=== PATIENT | female | born 1980 | race Two or more races ===

== ENCOUNTER 2023-04-22 12:13 | Inpatient (IN) | payer OTHER ==
[2023-04-22 12:41] VITALS: BMI 21.9
[2023-04-22] MEDS ORDERED: NALOXONE HCL 0.4 MG/ML VIAL IM PRN (14:15)
[2023-04-22] MEDS ORDERED: POLYETHYLENE GLYCOL (HEALTHYLAX) 3350 17 GM PACKET PO PRN (14:15)
[2023-04-22] MEDS ORDERED: METHOCARBAMOL 500 MG TABLET PO PRN (14:15)
[2023-04-22] MEDS ORDERED: NALOXONE HCL (KLOXXADO) 8 MG SPRAY NS PRN (14:15)
[2023-04-22] MEDS ORDERED: IBUPROFEN 400 MG TABLET (FP) PO PRN (14:15)
[2023-04-22] MEDS ORDERED: ACETAMINOPHEN 325 MG TABLET (FP) PO PRN (14:15)
[2023-04-22] MEDS ORDERED: IBUPROFEN 600 MG TABLET (FP) PO PRN (14:15)
[2023-04-22] MEDS ORDERED: DICYCLOMINE HCL 10 MG CAPSULE PO PRN (14:15)
[2023-04-22] MEDS ORDERED: MAGNESIUM HYDROX 2400MG/30ML ORAL SUSPENSION 30 ML CUP PO PRN (14:15)
[2023-04-22] MEDS ORDERED: LORazepam 1 MG TABLET PO PRN (14:15)
[2023-04-22] MEDS ORDERED: BISMUTH SUBSALICYLATE 262 MG/15 ML BTL PO PRN (14:15)
[2023-04-22] MEDS ORDERED: MAG HYDROX/AL HYDROX/SIMETH 30 ML UNIT-DOSE CUP PO PRN (14:15)
[2023-04-22] MEDS ORDERED: LOPERAMIDE HCL 2 MG CAPSULE PO PRN (14:15)
[2023-04-22] MEDS ORDERED: guaiFENesin 600 MG TABLET.ER (FP) PO PRN (14:15)
[2023-04-22] MEDS ORDERED: BENZONATATE 200 MG CAPSULE PO PRN (14:15)
[2023-04-22] MEDS ORDERED: BENZOCAINE/MENTHOL (CHLORASEPTIC ) LOZENGE MM PRN (14:15)
[2023-04-22] MEDS ORDERED: ONDANSETRON *ODT* 4 MG TABLET SL PRN (14:15)
[2023-04-22] MEDS ORDERED: NICOTINE 14 MG/24 HOURS TOPICAL PATCH TD ONE (14:42)
[2023-04-22] MEDS: NICOTINE 14 MG/24 HOURS TOPICAL PATCH TD SCH (14:44)
[2023-04-22] MEDS: LORazepam 2 MG TABLET PO SCH ×2 (17:25→22:27)
[2023-04-22] MEDS ORDERED: HYDROCORTISONE 2.5% TOPICAL CREAM 30 GM TUBE RC PRN (18:39)
[2023-04-22] MEDS: hydrOXYzine PAMOATE 25 MG CAPSULE (FP) PO PRN (20:49)
[2023-04-22] MEDS: MELATONIN 5 MG TABLETS PO SCH (22:27)
[2023-04-22] MEDS: THIAMINE HCL 100 MG TABLET (FP) PO SCH (22:27)
[2023-04-23] MEDS: LORazepam 2 MG TABLET PO SCH ×4 (05:34→22:27)
[2023-04-23] MEDS ORDERED: PRENATAL VITAMINS W/ FOLIC ACID TABLET (FP) PO SCH (10:00)
[2023-04-23] MEDS: NICOTINE 14 MG/24 HOURS TOPICAL PATCH TD SCH (10:24)
[2023-04-23] MEDS: hydrOXYzine PAMOATE 25 MG CAPSULE (FP) PO PRN (10:26)
[2023-04-23 11:27] LABS: HEMATOCRIT 20.8 % (32.4-45.2); HEMOGLOBIN 7.2 GM/dL (10.7-15.3); MCH 34.7 pg (25.7-33.7); MCHC 34.7 g/dl (32.0-36.0); MEAN CELL VOLUME 99.9 fl (80-96); MEAN PLT VOLUME 9.2 fl (7.5-11.1); PLATELET COUNT 247 10^3/uL (134-434); RBC 2.08 M/mm3 (3.60-5.2); RDW 14.7 % (11.6-15.6); WHITE BLOOD COUNT 8.6 K/mm3 (4.0-10.0)
[2023-04-23 11:28] LABS: CHLORIDE 96 mmol/L (98-107); SODIUM 132 mmol/L (136-145)
[2023-04-23 11:31] LABS: ALBUMIN 1.8 g/dl (3.4-5.0); GLUCOSE,RANDOM 110 mg/dL (74-106)
[2023-04-23 11:32] LABS: ANION GAP 11 mmol/L (4-13); BLOOD UREA NITROGEN 4.3 mg/dL (7-18); CO2 25 mmol/L (21-32)
[2023-04-23 11:34] LABS: CALCIUM 8.1 mg/dL (8.5-10.1)
[2023-04-23 11:35] LABS: CREATININE 0.5 mg/dL (0.55-1.3); SGOT/AST 184 U/L (15-37); SGPT/ALT 41 U/L (13-61)
[2023-04-23 11:36] LABS: TOT PROT 6.7 g/dl (6.4-8.2)
[2023-04-23 11:37] LABS: ALK PHOS 338 U/L (45-117)
[2023-04-23 11:38] LABS: BILIRUBIN,TOTAL 19.5 mg/dL (0.2-1)
[2023-04-23] MEDS ORDERED: POTASSIUM CHLORIDE ORAL LIQUID 20 MEQ/15 ML PO ONE ×2 (15:30→21:00)
[2023-04-23] MEDS ORDERED: LIDOCAINE 5% TOPICAL PATCH TP ONE (15:38)
[2023-04-23 16:42] VITALS: BP 102/61; PULSE 123; RESP 16; TEMP 98.9
[2023-04-23] MEDS ORDERED: LIDOCAINE PATCH REMOVAL MC SCH (22:00)
[2023-04-23] MEDS: MELATONIN 5 MG TABLETS PO SCH (22:26)
[2023-04-23] MEDS: THIAMINE HCL 100 MG TABLET (FP) PO SCH (22:27)
[2023-04-24] MEDS ORDERED: LORazepam 1 MG TABLET PO SCH (05:00)
[2023-04-25] MEDS ORDERED: LORazepam 0.5 MG TABLET PO PRN
[2023-04-25] MEDS ORDERED: LORazepam 0.5 MG TABLET PO SCH (05:00)
[2023-04-26] MEDS ORDERED: LORazepam 0.5 MG TABLET PO ONE (05:00)
== END 2023-04-24 02:03 | disposition short-term general hospital (02) | DRG 775 ==
LOC: YASAS 12:13 → Y6N 14:47
PROVIDERS: ADMIT Allergy & Immunology; ATTEND Surgery
PROC: HZ2ZZZZ Detoxification Services for Substance Abuse Treatment (ICD-10-PCS; principal; 2023-04-22)
DX: F10.230 Alcohol dependence with withdrawal, uncomplicated (principal); F17.210 Nicotine dependence, cigarettes, uncomplicated; D50.9 Iron deficiency anemia, unspecified; E72.20 Disorder of urea cycle metabolism, unspecified; E87.1 Hypo-osmolality and hyponatremia; E87.6 Hypokalemia; R17 Unspecified jaundice; R74.8 Abnormal levels of other serum enzymes; K64.9 Unspecified hemorrhoids; Z87.09 Personal history of other diseases of the respiratory system
CPT/HCPCS: 36415; 80053; 80307; 81025; 82140; 85027; 86780; 87635; 87811; 93005; 93010

== ENCOUNTER 2023-04-23 17:30 | Emergency (ER) | payer OTHER ==
[2023-04-23 18:55] VITALS: BMI 27.3
[2023-04-23 20:47] LABS: INR 1.62 (0.83-1.09); PROTHROMBIN TIME (PATIENT) 18.7 SEC (9.7-13.0)
[2023-04-23 20:58] LABS: BILIRUBIN,DIRECT 15.3 mg/dL (0.0-0.2)
[2023-04-23 22:31] LABS: LIPASE 1054 U/L (73-393)
[2023-04-24 01:42] VITALS: BP 129/85; PULSE 114; RESP 15; TEMP 98
== END 2023-04-24 00:31 | disposition short-term general hospital (02) ==
LOC: JER 17:30
DX: R17 Unspecified jaundice (principal); R11.2 Nausea with vomiting, unspecified; R14.0 Abdominal distension (gaseous); K72.90 Hepatic failure, unspecified without coma; F10.20 Alcohol dependence, uncomplicated
CPT/HCPCS: 36415; 74177-TC; 76700-TC; 82247; 82248; 83690; 84484; 85610; 85730; 99291

== ENCOUNTER 2023-11-29 16:23 | Emergency (ER) | payer OTHER ==
[2023-11-29 16:45] VITALS: RESP 16; BMI 22.2
[2023-11-29 18:09] LABS: BASO % 0.6 % (0-2.0); EOS % 0.9 % (0-4.5); HEMATOCRIT 35.5 % (32.4-45.2); HEMOGLOBIN 12.3 GM/dL (10.7-15.3); LYMPH % 8.6 % (8-40); MCH 36.3 pg (25.7-33.7); MCHC 34.5 g/dl (32.0-36.0); MONO % 6.7 % (3.8-10.2); NEUT % 83.2 % (42.8-82.8); PH,URINE 6.5 (5.0-8.0); PLATELET COUNT 184 10^3/uL (134-434); RBC 3.38 M/mm3 (3.60-5.2); RDW 14.1 % (11.6-15.6); URINE APPEARANCE CLEAR; URINE BILIRUBIN 3+ (NEGATIVE); URINE COLOR DK YELLOW; URINE GLUCOSE (UA) NEGATIVE (NEGATIVE); URINE KETONE NEGATIVE (NEGATIVE); URINE LEUK ESTERASE NEGATIVE (NEGATIVE); URINE NITRITE NEGATIVE (NEGATIVE); URINE PROTEIN NEGATIVE (NEGATIVE); WHITE BLOOD COUNT 14.8 K/mm3 (4.0-10.0)
[2023-11-29 18:19] LABS: INR 2.46 (0.83-1.09); PROTHROMBIN TIME (PATIENT) 27.6 SEC (9.7-13.0)
[2023-11-29 18:21] LABS: ACTIVATED PTT 44.5 SECONDS (25.2-36.5)
[2023-11-29 18:23] LABS: CHLORIDE 99 mmol/L (98-107); POTASSIUM 4.2 mmol/L (3.5-5.1); SODIUM 129 mmol/L (136-145)
[2023-11-29 18:25] LABS: BLOOD UREA NITROGEN 8.3 mg/dL (7-18); GLUCOSE,RANDOM 99 mg/dL (74-106)
[2023-11-29 18:26] LABS: ALBUMIN 1.7 g/dl (3.4-5.0); ANION GAP 6 mmol/L (4-13); CO2 24 mmol/L (21-32)
[2023-11-29 18:29] LABS: CREATININE 0.4 mg/dL (0.55-1.3); SGOT/AST 85 U/L (15-37)
[2023-11-29 18:30] LABS: TOT PROT 5.9 g/dl (6.4-8.2)
[2023-11-29 18:32] LABS: ALK PHOS 283 U/L (45-117)
[2023-11-29 18:36] LABS: BILIRUBIN,DIRECT 13.4 mg/dL (0.0-0.2)
[2023-11-29 18:43] LABS: BILIRUBIN,TOTAL 17.7 mg/dL (0.2-1); SGPT/ALT 35 U/L (13-61)
[2023-11-29 18:58] LABS: ANISOCYTOSIS 1+; MACROCYTOSIS 1+; TARGET CELLS 1+
[2023-11-29] MEDS ORDERED: ALBUTEROL SO4 0.083% IH SOL 2.5 MG/3 ML VIAL.NEB. NEB ONE (19:56)
[2023-11-29] MEDS: ALBUTEROL SO4 0.083% IH SOL 2.5 MG/3 ML VIAL.NEB. NEB ONE (20:15)
[2023-11-29 20:31] VITALS: PULSE 95
[2023-11-29 22:51] VITALS: BP 114/88; TEMP 98.5
== END 2023-11-29 22:50 | disposition short-term general hospital (02) ==
LOC: JER 16:23
PROC: 3E0F7GC Introduction of Other Therapeutic Substance into Respiratory Tract, Via Natural or Artificial Opening (ICD-10-PCS; principal; 2023-11-29)
DX: R18.8 Other ascites (principal); M79.89 Other specified soft tissue disorders; Z20.822 Contact with and (suspected) exposure to COVID-19
CPT/HCPCS: 0241U-QW; 36415; 71045-TC-FY; 80053; 81003; 82140; 82248; 82962; 83605; 83690; 84703; 85025; 85610; 85730; 87086; 87186; 93005; 93010; 99285-25

== ENCOUNTER 2023-12-11 15:23 | Inpatient (IN) | payer OTHER ==
[2023-12-11 17:32] VITALS: BMI 22.8
[2023-12-11] MEDS ORDERED: NALOXONE (NARCAN) HCL 4 MG/0.1 ML SPRAY NS PRN (19:35)
[2023-12-11] MEDS ORDERED: POLYETHYLENE GLYCOL (HEALTHYLAX) 3350 17 GM PACKET PO PRN (19:35)
[2023-12-11] MEDS ORDERED: guaiFENesin 600 MG TABLET.ER (FP) PO PRN (19:35)
[2023-12-11] MEDS ORDERED: MAGNESIUM HYDROX 2400MG/30ML ORAL SUSPENSION 30 ML CUP PO PRN (19:35)
[2023-12-11] MEDS ORDERED: BENZONATATE 200 MG CAPSULE PO PRN (19:35)
[2023-12-11] MEDS ORDERED: MAG HYDROX/AL HYDROX/SIMETH 30 ML UNIT-DOSE CUP PO PRN (19:35)
[2023-12-11] MEDS ORDERED: NALOXONE HCL 0.4 MG/ML VIAL IVPUSH PRN (19:35)
[2023-12-11] MEDS ORDERED: LOPERAMIDE HCL 2 MG CAPSULE PO PRN (19:35)
[2023-12-11] MEDS ORDERED: BENZOCAINE/MENTHOL (CHLORASEPTIC ) LOZENGE MM PRN (19:35)
[2023-12-11] MEDS: THIAMINE 100 MG TABLET PO SCH (22:49)
[2023-12-11] MEDS: MELATONIN 5 MG TABLETS PO SCH (22:49)
[2023-12-11] MEDS: BUDESONIDE/FORMETEROL FUMARATE 80/4.5 mcg INHALER IH SCH (22:50)
[2023-12-11] MEDS: ACAMPROSATE CALCIUM 333 MG TABLET.DR PO SCH (22:50)
[2023-12-11] MEDS: METHOCARBAMOL 500 MG TABLET PO PRN (22:50)
[2023-12-11] MEDS ORDERED: ALBUTEROL SO4 HFA INHALER IH PRN (23:51)
[2023-12-12] MEDS: LACTULOSE 20 GM/30 ML UDC (FOR ORAL USE ONLY) PO SCH (06:06)
[2023-12-12] MEDS: FERROUS SO4 325 MG TABLET (FP) PO SCH (07:13)
[2023-12-12] MEDS ORDERED: LORATADINE 10 MG TABLET PO PRN (08:49)
[2023-12-12] MEDS: PRENATAL VITAMINS W/ FOLIC ACID TABLET (FP) PO SCH (09:52)
[2023-12-12] MEDS: NICOTINE 14 MG/24 HOURS TOPICAL PATCH TD SCH (09:53)
[2023-12-12] MEDS: LORATADINE 10 MG TABLET PO SCH (09:53)
[2023-12-12] MEDS: ESCITALOPRAM OXALATE 10 MG TABLET PO SCH (09:53)
[2023-12-12] MEDS: FOLIC ACID 1 MG TABLET (FP) PO SCH (09:54)
[2023-12-12] MEDS: predniSONE 20 MG TABLET (UD) PO SCH (09:54)
[2023-12-12] MEDS: PANTOPRAZOLE 40 MG TABLET PO SCH (09:54)
[2023-12-16] MEDS: TUBERCULIN PPD 5 TU/0.1ML VIAL ID ONE (10:40)
[2023-12-16 12:00] LABS: BASO % 0.4 % (0-2.0); EOS % 0.8 % (0-4.5); HEMATOCRIT 30.3 % (32.4-45.2); HEMOGLOBIN 10.2 GM/dL (10.7-15.3); LYMPH % 8.2 % (8-40); MCH 34.5 pg (25.7-33.7); MCHC 33.6 g/dl (32.0-36.0); MEAN CELL VOLUME 102.7 fl (80-96); MEAN PLT VOLUME 9.7 fl (7.5-11.1); NEUT % 83.6 % (42.8-82.8); PLATELET COUNT 172 10^3/uL (134-434); RBC 2.95 M/mm3 (3.60-5.2); RDW 14.2 % (11.6-15.6); WHITE BLOOD COUNT 16.8 K/mm3 (4.0-10.0)
[2023-12-16 12:06] LABS: INR 1.74 (0.83-1.09); PROTHROMBIN TIME (PATIENT) 19.4 SEC (9.7-13.0)
[2023-12-16 12:07] LABS: POTASSIUM 4.7 mmol/L (3.5-5.1)
[2023-12-16 12:11] LABS: BLOOD UREA NITROGEN 15.3 mg/dL (7-18); CALCIUM 8.1 mg/dL (8.5-10.1)
[2023-12-16 12:12] LABS: MAGNESIUM 2.2 mg/dL (1.8-2.4)
[2023-12-16 12:14] LABS: CREATININE 0.5 mg/dL (0.55-1.3)
[2023-12-16 12:16] LABS: BILIRUBIN,TOTAL 7.1 mg/dL (0.2-1)
[2023-12-17] MEDS: MELATONIN 5 MG TABLETS PO SCH (21:48)
[2023-12-19] MEDS: CHOLECALCIFEROL (VIT D3) 400 UNIT (10 MCG) TABLET PO SCH (10:36)
[2023-12-19 11:51] LABS: INR 1.61 (0.83-1.09); PROTHROMBIN TIME (PATIENT) 18.3 SEC (9.7-13.0)
[2023-12-19 11:52] LABS: BASO % 0.4 % (0-2.0); EOS % 0.7 % (0-4.5); HEMATOCRIT 30.3 % (32.4-45.2); HEMOGLOBIN 10.1 GM/dL (10.7-15.3); LYMPH % 9.8 % (8-40); MCH 34.6 pg (25.7-33.7); MCHC 33.3 g/dl (32.0-36.0); MEAN CELL VOLUME 103.9 fl (80-96); MONO % 7.9 % (3.8-10.2); NEUT % 81.2 % (42.8-82.8); RBC 2.92 M/mm3 (3.60-5.2); RDW 14.5 % (11.6-15.6)
[2023-12-19 11:55] LABS: CALCIUM 8.1 mg/dL (8.5-10.1)
[2023-12-19 11:56] LABS: BLOOD UREA NITROGEN 13.9 mg/dL (7-18)
[2023-12-19 11:58] LABS: CREATININE 0.3 mg/dL (0.55-1.3)
[2023-12-19 12:00] LABS: BILIRUBIN,TOTAL 6.1 mg/dL (0.2-1); TOT PROT 5.9 g/dl (6.4-8.2)
[2023-12-19 12:13] LABS: PLATELET COUNT 171 10^3/uL (134-434)
[2023-12-19 19:49] VITALS: TEMP 98.5
[2023-12-19 22:13] VITALS: BP 128/78; PULSE 108; RESP 18
== END 2023-12-20 07:02 | disposition short-term general hospital (02) | DRG 772 ==
LOC: YASAS 15:23 → Y3NR 20:04 → Y5N 12-15 18:42
PROVIDERS: ADMIT Allergy & Immunology; ATTEND Psychiatry & Neurology Pain Medicine
PROC: HZ42ZZZ Group Counseling for Substance Abuse Treatment, Cognitive-Behavioral (ICD-10-PCS; principal; 2023-12-11)
DX: F10.280 Alcohol dependence with alcohol-induced anxiety disorder (principal); F10.20 Alcohol dependence, uncomplicated; F17.210 Nicotine dependence, cigarettes, uncomplicated; F10.282 Alcohol dependence with alcohol-induced sleep disorder; K70.31 Alcoholic cirrhosis of liver with ascites; K21.9 Gastro-esophageal reflux disease without esophagitis; J45.909 Unspecified asthma, uncomplicated; R74.01 Elevation of levels of liver transaminase levels; R60.0 Localized edema
CPT/HCPCS: 36415; 80053; 80305; 80307; 81025; 82140; 82607; 82652; 82746; 83690; 83735; 85025; 85610; 86803; 87811

== ENCOUNTER 2023-12-19 23:19 | Emergency (ER) | payer OTHER ==
[2023-12-19 23:33] VITALS: RESP 18; BMI 24.7
[2023-12-20 04:24] VITALS: BP 101/78; PULSE 107; TEMP 98.6
== END 2023-12-20 04:24 | disposition short-term general hospital (02) ==
LOC: JER 23:19
DX: K70.31 Alcoholic cirrhosis of liver with ascites (principal)
CPT/HCPCS: 99285-25

== ENCOUNTER 2023-12-25 12:01 | Inpatient (IN) | payer OTHER ==
[2023-12-25 13:18] VITALS: BMI 27.8
[2023-12-25] MEDS ORDERED: ACETAMINOPHEN 325 MG TABLET (FP) PO PRN (13:49)
[2023-12-25] MEDS ORDERED: LOPERAMIDE HCL 2 MG CAPSULE PO PRN (13:49)
[2023-12-25] MEDS ORDERED: BENZOCAINE/MENTHOL (CHLORASEPTIC ) LOZENGE MM PRN (13:49)
[2023-12-25] MEDS ORDERED: hydrOXYzine PAMOATE 25 MG CAPSULE (FP) PO PRN (13:49)
[2023-12-25] MEDS ORDERED: IBUPROFEN 400 MG TABLET (FP) PO PRN (13:49)
[2023-12-25] MEDS ORDERED: BENZONATATE 200 MG CAPSULE PO PRN (13:49)
[2023-12-25] MEDS ORDERED: POLYETHYLENE GLYCOL (HEALTHYLAX) 3350 17 GM PACKET PO PRN (13:49)
[2023-12-25] MEDS ORDERED: guaiFENesin 600 MG TABLET.ER (FP) PO PRN (13:49)
[2023-12-25] MEDS ORDERED: IBUPROFEN 600 MG TABLET (FP) PO PRN (13:49)
[2023-12-25] MEDS ORDERED: MAGNESIUM HYDROX 2400MG/30ML ORAL SUSPENSION 30 ML CUP PO PRN (13:49)
[2023-12-25] MEDS ORDERED: NALOXONE (NARCAN) HCL 4 MG/0.1 ML SPRAY NS PRN (13:49)
[2023-12-25] MEDS ORDERED: NALOXONE HCL 0.4 MG/ML VIAL IM PRN (13:49)
[2023-12-25] MEDS: ACAMPROSATE CALCIUM 333 MG TABLET.DR PO SCH (15:37)
[2023-12-25] MEDS: LACTULOSE 20 GM/30 ML UDC (FOR ORAL USE ONLY) PO SCH (15:38)
[2023-12-25] MEDS: PRENATAL VITAMINS W/ FOLIC ACID TABLET (FP) PO SCH (15:38)
[2023-12-25] MEDS: MELATONIN 5 MG TABLETS PO SCH (21:20)
[2023-12-25] MEDS: BUDESONIDE/FORMETEROL FUMARATE 80/4.5 mcg INHALER IH SCH (21:22)
[2023-12-25] MEDS: THIAMINE 100 MG TABLET PO SCH (21:22)
[2023-12-25] MEDS: ALBUTEROL SO4 HFA INHALER IH SCH (21:23)
[2023-12-26 06:59] LABS: EPI CELLS 36 /uL (0-25.1); HYALINE CASTS 5 /uL (0-3.1); URINE APPEARANCE TURBID; URINE BACTERIA 408 /uL (0-1359); URINE BILIRUBIN 2+ (NEGATIVE); URINE COLOR DK YELLOW; URINE GLUCOSE (UA) NEGATIVE (NEGATIVE); URINE KETONE TRACE (NEGATIVE); URINE LEUK ESTERASE 1+ (NEGATIVE); URINE NITRITE NEGATIVE (NEGATIVE); URINE PROTEIN TRACE (NEGATIVE); URINE RBC 43 /uL (0-23.9); URINE WBC 34 /uL (0-25.8)
[2023-12-26 08:07] LABS: URINE CRYSTALS CA OXALATE FEW /hpf
[2023-12-26] MEDS ORDERED: ALBUTEROL SO4 HFA INHALER IH PRN (08:58)
[2023-12-26] MEDS: predniSONE 20 MG TABLET (UD) PO SCH (10:16)
[2023-12-26] MEDS: FERROUS SO4 325 MG TABLET (FP) PO SCH (10:16)
[2023-12-26] MEDS: FOLIC ACID 1 MG TABLET (FP) PO SCH (10:16)
[2023-12-26] MEDS: NICOTINE 14 MG/24 HOURS TOPICAL PATCH TD SCH (10:16)
[2023-12-26] MEDS: PANTOPRAZOLE 40 MG TABLET PO SCH (10:16)
[2023-12-26] MEDS: ESCITALOPRAM OXALATE 10 MG TABLET PO SCH (10:16)
[2023-12-26] MEDS: LORATADINE 10 MG TABLET PO SCH (10:16)
[2023-12-26 11:52] LABS: HEMATOCRIT 30.4 % (32.4-45.2); HEMOGLOBIN 10.3 GM/dL (10.7-15.3); MCH 34.9 pg (25.7-33.7); MEAN CELL VOLUME 102.6 fl (80-96); PLATELET COUNT 121 10^3/uL (134-434); POTASSIUM 5.2 mmol/L (3.5-5.1); RBC 2.96 M/mm3 (3.60-5.2); WHITE BLOOD COUNT 11.7 K/mm3 (4.0-10.0)
[2023-12-26 11:54] LABS: CALCIUM 8.1 mg/dL (8.5-10.1)
[2023-12-26 11:55] LABS: ALBUMIN 2.2 g/dl (3.4-5.0)
[2023-12-26 11:58] LABS: CREATININE 0.5 mg/dL (0.55-1.3)
[2023-12-26 12:00] LABS: BILIRUBIN,TOTAL 4.4 mg/dL (0.2-1); TOT PROT 5.8 g/dl (6.4-8.2)
[2023-12-26 14:06] LABS: SYPHILIS W/ RPR CONF NON-REACTIVE (NONREACTIVE)
[2023-12-26] MEDS: MAG HYDROX/AL HYDROX/SIMETH 30 ML UNIT-DOSE CUP PO PRN (14:30)
[2023-12-26] MEDS ORDERED: FUROSEMIDE 20 MG TABLET (FP) PO SCH (16:00)
[2023-12-26] MEDS: metoPROLOL SUCCINATE 25 MG TAB.SR.24H (FP) PO SCH (18:18)
[2023-12-26] MEDS: SPIRONOLACTONE 25 MG TABLET PO SCH (18:18)
[2023-12-26] MEDS: MELATONIN 5 MG TABLETS PO SCH (21:33)
[2023-12-27] MEDS: FUROSEMIDE 20 MG TABLET (FP) PO SCH (09:56)
[2023-12-29 06:40] VITALS: BP 115/73; PULSE 100; RESP 18; TEMP 97.9
[2023-12-29 12:03] LABS: INR 1.66 (0.83-1.09); PROTHROMBIN TIME (PATIENT) 18.5 SEC (9.7-13.0)
[2024-01-01] MEDS ORDERED: predniSONE 5 MG TABLET (UD) PO SCH (10:00)
[2024-01-04] MEDS ORDERED: predniSONE 10 MG TABLET (UD) PO SCH (10:00)
[2024-01-07] MEDS ORDERED: predniSONE 5 MG TABLET (UD) PO SCH (10:00)
== END 2023-12-29 16:20 | disposition home or self-care (01) | DRG 772 ==
LOC: YASAS 12:01 → Y5N 13:47
PROVIDERS: ADMIT Allergy & Immunology; ATTEND Psychiatry & Neurology Pain Medicine
PROC: HZ42ZZZ Group Counseling for Substance Abuse Treatment, Cognitive-Behavioral (ICD-10-PCS; principal; 2023-12-25)
DX: F10.20 Alcohol dependence, uncomplicated (principal); F17.210 Nicotine dependence, cigarettes, uncomplicated; F10.282 Alcohol dependence with alcohol-induced sleep disorder; F10.280 Alcohol dependence with alcohol-induced anxiety disorder; F32.A Depression, unspecified; J45.909 Unspecified asthma, uncomplicated; K70.31 Alcoholic cirrhosis of liver with ascites; K21.9 Gastro-esophageal reflux disease without esophagitis; R17 Unspecified jaundice; R74.01 Elevation of levels of liver transaminase levels; R00.0 Tachycardia, unspecified
CPT/HCPCS: 36415; 80053; 80305; 80307; 81003; 81025; 82607; 82746; 85027; 85610; 86780; 86803; 87811; 93005; 93010